=== PATIENT | female | born 1975 | race Caucasian/White ===

== ENCOUNTER → 2019-09-28 12:28 | Outpatient (BNVA) | payer BC, SELFPAY | PROVIDERS: Family Provider Registered Nurse; PCP Registered Nurse; Referring Provider Dermatology; Visit Provider Internal Medicine Rheumatology | DX: M19.90 Unspecified osteoarthritis, unspecified site (principal); Z79.899 Other long term (current) drug therapy; Z11.59 Encounter for screening for other viral diseases; Z11.1 Encounter for screening for respiratory tuberculosis; M25.541 Pain in joints of right hand; M25.542 Pain in joints of left hand; M77.9 Enthesopathy, unspecified; M77.02 Medial epicondylitis, left elbow; M77.12 Lateral epicondylitis, left elbow; M75.42 Impingement syndrome of left shoulder; M75.41 Impingement syndrome of right shoulder; M18.12 Unilateral primary osteoarthritis of first carpometacarpal joint, left hand | CPT/HCPCS: 36415; 82306; 82565; 85025; 85651; 86140; 86431; 86480; 86704; 86705; 86706; 86709; 86803; 86812; 87340; 99204 ==

== ENCOUNTER 2019-10-13 08:27 | Outpatient (CLI) | payer BC, SELFPAY ==
--- NOTE | 2019-10-13 08:42 | XR_ITS ---
WS: [id number] FOOT LEFT TECHNIQUE: 3 views of the left foot CLINICAL INFORMATION: inflammatory arthritis COMPARISON: None. FINDINGS: No evidence of acute fracture or dislocation. Normal tarsal metatarsal alignment. Normal calcaneus. N ormal visualized talar dome. No acute findings. XR/XR foot LT min 3V* [id number] IMPRESSION: Normal left foot.
--- NOTE | 2019-10-13 08:42 | XR_ITS ---
WS: [id number] HAND LEFT TECHNIQUE: 3 views of the left hand CLINICAL INFORMATION: inflammatory arthritis COMPARISON: None. FINDINGS: Normal metacarpals. Normal MCP joint. Metacarpal heads are normal in appearance. Normal PIP and DIP j oints. No evidence of acute fracture or dislocation. Radiocarpal joint: Normal. Carpal bones: Normal. XR/XR hand LT min 3V* [id number] IMPRESSION: Normal left hand.
--- NOTE | 2019-10-13 08:42 | XR_ITS ---
WS: [id number] HAND RIGHT TECHNIQUE: 3 views of the right hand CLINICAL INFORMATION: inflammatory arthritis COMPARISON: None. FINDINGS: Normal metacarpals. Normal MCP joint. Metacarpal heads are normal in appearance. Normal PIP and DIP j oints. No evidence of acute fracture or dislocation. Radiocarpal joint: Normal. Carpal bones: Normal. XR/XR hand RT min 3V* [id number] IMPRESSION: Normal right hand.
--- NOTE | 2019-10-13 08:42 | XR_ITS ---
WS: [id number] FOOT RIGHT TECHNIQUE: 3 views of the right foot CLINICAL INFORMATION: inflammatory arthritis COMPARISON: None. FINDINGS: No evidence of acute fracture or dislocation. Normal tarsal metatarsal alignment. Normal calcaneus. N ormal visualized talar dome. No acute findings. XR/XR foot RT min 3V* [id number] IMPRESSION: Normal right foot.
--- NOTE | 2019-10-13 08:42 | XR_ITS ---
WS: [id number] SHOULDER LEFT TECHNIQUE: 3 views of the left shoulder CLINICAL INFORMATION: inflammatory arthritis COMPARISON: None. FINDINGS: Normal acromioclavicular joint. Normal glenohumeral joint. Acromion is normal in appearance. Normal g lenoid. No evidence of acute fracture dislocation. XR/XR shoulder LT min 2V* [id number] IMPRESSION: Normal left shoulder.
== END 2019-10-13 08:28 | disposition home or self-care (01) ==
LOC: RADWPI 08:34
PROVIDERS: Family Provider Nurse Practitioner Family; PCP Registered Nurse; Visit Provider Internal Medicine Rheumatology
DX: M19.90 Unspecified osteoarthritis, unspecified site (principal)
CPT/HCPCS: 73030; 73130; 73630

== ENCOUNTER → 2019-10-16 14:57 | Outpatient (BNVA) | payer BC, SELFPAY | PROVIDERS: Family Provider Nurse Practitioner Family; PCP Registered Nurse; Visit Provider Internal Medicine Rheumatology | DX: M06.4 Inflammatory polyarthropathy (principal); Z15.89 Genetic susceptibility to other disease; M19.90 Unspecified osteoarthritis, unspecified site; M77.9 Enthesopathy, unspecified; R76.8 Other specified abnormal immunological findings in serum; M75.41 Impingement syndrome of right shoulder; M18.12 Unilateral primary osteoarthritis of first carpometacarpal joint, left hand; M77.12 Lateral epicondylitis, left elbow; M77.02 Medial epicondylitis, left elbow; M75.42 Impingement syndrome of left shoulder | CPT/HCPCS: 36415; 82085; 82550; 84439; 84443; 85651; 86140; 99214 ==

== ENCOUNTER → 2019-11-23 13:39 | Outpatient (BNVA) | payer BC, SELFPAY | PROVIDERS: Family Provider Nurse Practitioner Family; PCP Registered Nurse; Visit Provider Nurse Practitioner Family | DX: J06.9 Acute upper respiratory infection, unspecified (principal) | CPT/HCPCS: 87804 ==

== ENCOUNTER → 2022-01-20 11:00 | Outpatient (BNVA) | payer SELFPAY | PROVIDERS: Family Provider Nurse Practitioner Family; PCP Registered Nurse; Visit Provider Registered Nurse | DX: I10 Essential (primary) hypertension (principal); E53.8 Deficiency of other specified B group vitamins; E55.9 Vitamin D deficiency, unspecified; E78.5 Hyperlipidemia, unspecified; Z12.11 Encounter for screening for malignant neoplasm of colon | CPT/HCPCS: 80053; 80061; 82306; 82607; 85025 ==

== ENCOUNTER 2022-08-12 13:09 | Outpatient (CLI) | payer BC, SELFPAY ==
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
== END 2022-08-12 13:10 | disposition home or self-care (01) ==
LOC: RAD 13:12
PROVIDERS: PCP Registered Nurse; Visit Provider Registered Nurse
DX: S02.2XXA Fracture of nasal bones, initial encounter for closed fracture (principal); X58.XXXA Exposure to other specified factors, initial encounter
CPT/HCPCS: 70160

== ENCOUNTER 2022-08-26 15:14 | Outpatient (CLI) | payer BC, SELFPAY ==
--- NOTE | 2022-08-26 15:45 | XR_ITS ---
WS: [id number] EXAMINATION: XR nasal bones min 3V [id number] REASON FOR EXAM: FRACTURE OF NASAL BONES COMPARISON: 08/12/2022 ORDER DATE: 08/26/2022 3:46 PM FINDINGS: Sinuses: Well aerated. No opacification. Bones/joints: Comminuted displaced fracture of the distal aspect of the nasal bone somewhat less displaced than previous. Soft tissues: Soft tissue edema is seen in the nose overlying fracture. XR/XR nasal bones min 3V [id number] IMPRESSION: 1. Comminuted nondepressed nasal bone fracture as noted 2. Soft tissue edema in the nose.
== END 2022-08-26 15:15 | disposition home or self-care (01) ==
LOC: RAD 15:16
PROVIDERS: PCP Registered Nurse; Visit Provider Otolaryngology
DX: S02.2XXA Fracture of nasal bones, initial encounter for closed fracture (principal); X58.XXXA Exposure to other specified factors, initial encounter
CPT/HCPCS: 70160

== ENCOUNTER → 2023-05-27 09:57 | Outpatient (BNVA) | payer BC, SELFPAY | PROVIDERS: PCP Registered Nurse; Visit Provider Nurse Practitioner Family | DX: M79.672 Pain in left foot (principal) | CPT/HCPCS: 73630 ==

== ENCOUNTER 2023-06-25 12:47 | Outpatient (CLI) | payer BC, SELFPAY ==
--- NOTE | 2023-06-25 13:00 | CT_ITS ---
WS: [id number] CT LEFT FOOT, NONCONTRAST HISTORY: M79.672 - Pain in left foot, injury top of foot 1 month ago. Technique: All CT scans at [facility] use at least one of these dose optimization techniques: automated exposure control; mA and/or kV adjustment per patient size (includes targeted exams where dose is matched to clinical indication); or iterative reconstruction. DLP: 139.67 mGy.cm COMPARISON: Radiographs 05/27/2023 No acute fractures identified. No callus formation or healing fractures. No soft tissue abnormality. Normal alignment at the tarsometatarsal articulation. No widening of the Lisfranc ligament. No soft t issue abnormalities. There is a well-circumscribed osseous density medial to the distal talus. This i s not associated with the area of pain. This could be a small osseous fragment from a prior injury bu t no donor site is identified. Several hammertoe deformities. IMPRESSION: No acute or healing LEFT foot fracture. There is a small well-circumscribed osseous densities in the soft tissue of the medial foot. No donor site is identified. May be from a remote injury.
== END 2023-06-25 12:48 | disposition home or self-care (01) ==
LOC: RAD 12:50
PROVIDERS: PCP Registered Nurse; Visit Provider Registered Nurse
DX: M79.672 Pain in left foot (principal); M20.42 Other hammer toe(s) (acquired), left foot; R93.6 Abnormal findings on diagnostic imaging of limbs; S99.922D Unspecified injury of left foot, subsequent encounter; X58.XXXD Exposure to other specified factors, subsequent encounter
CPT/HCPCS: 73700

== ENCOUNTER 2023-08-10 16:37 | Outpatient (CLI) | payer BC, SELFPAY ==
--- NOTE | 2023-08-10 16:45 | MR_ITS ---
WS: [id number] EXAMINATION: MR foot LT wo con* [id number] ORDER DATE: 08/10/2023 4:38 PM COMPARISON: None. HISTORY: Left foot pain CONTRAST: None. TECHNIQUE: Sagittal T1, sagittal STIR, coronal PD, coronal T2, axial T1, axial T2, and axial PD imagi ng with fat saturation technique. FINDINGS: Metatarsals are normal in appearance. Chronic erosions involving the metatarsals heads. Deg enerative narrowing involving the first MTP. Soft tissue edema involving the dorsal foot worse involv ing the lateral foot. Fifth metatarsal is normal in appearance. Normal cuboid. No acute fractures. No rmal navicular. Normal cuneiforms. Mild degenerative arthritis at the MTP and IP joints IMPRESSION: Dorsal foot soft tissue edema. No acute fractures.
== END 2023-08-10 16:38 | disposition home or self-care (01) ==
PROVIDERS: PCP Registered Nurse; Visit Provider Podiatrist Foot & Ankle Surgery
DX: M79.672 Pain in left foot (principal); R60.0 Localized edema
CPT/HCPCS: 73718

== ENCOUNTER → 2023-12-02 10:07 | Outpatient (BNVA) | payer BC, SELFPAY | PROVIDERS: PCP Registered Nurse; Visit Provider Registered Nurse | DX: I10 Essential (primary) hypertension (principal); G47.33 Obstructive sleep apnea (adult) (pediatric); Z00.00 Encounter for general adult medical examination without abnormal findings | CPT/HCPCS: 80053; 80061; 84443; 85025 ==

== ENCOUNTER 2024-08-14 20:00 | Outpatient (CLI) | payer BC, SELFPAY | END 2024-08-14 20:01 | disposition home or self-care (01) | LOC: SLEEP 22:35 | PROVIDERS: PCP Registered Nurse; Visit Provider Registered Nurse | DX: G47.33 Obstructive sleep apnea (adult) (pediatric) (principal); I10 Essential (primary) hypertension | CPT/HCPCS: 95810 ==

== ENCOUNTER 2024-10-23 11:10 | Emergency (ER) | payer BC, SELFPAY ==
[2024-10-23 11:13] VITALS: BP 205/108; PULSE 80; RESP 16; TEMP 36.6; O2SAT 99; BMI 27.2
[2024-10-23 11:36] VITALS: BP 198/105; PULSE 82; RESP 16; O2SAT 99
--- NOTE | 2024-10-23 11:36 | ECG_ITS ---
[facility] Date: 2024-10[facility]23 Pat Name: Radha Fernandez Department: Room: Gender: Female Credit Report Checker: : 1975 Requested By: Cindy Danielle Order Number: [id number] Sanaz MD: Gagandeep Ha M.D. Measurements Intervals [place] Rate: 74 P: 55 NH: 166 QRS: 19 QRSD: 169 T: 8 QT: 437 QTc: 487 Interpretive Statements SINUS RHYTHM POSSIBLE LEFT ATRIAL ENLARGEMENT [-0.1mV P-WAVE IN V1/V2] INTRAVENTRICULAR CONDUCTION DELAY [130+ ms QRS DURATION] Compared to ECG 04/28/2019 12:58:30 Intraventricular conduction delay now present Sinus bradycardia no longer present Right bundle-branch block no longer present Electronically Signed On 10-26-2024 22:08:23 SEED LABORATORY ASSISTANT by Gagandeep Ha M.D. [id number] [id number]
--- NOTE | 2024-10-23 11:36 | XRR_ITS ---
PROCEDURE INFORMATION: Exam: XR Chest Exam date and time: 10/23/2024 11:38 AM Age: 49 years old Clinical indication: Pain; Angina pectoris; Dizziness, high BP; Additional info: Cp TECHNIQUE: Imaging protocol: Radiologic exam of the chest. Views: 1 view. COMPARISON: CR XR shoulder LT min 2V* [id number] 10/13/2019 8:48 AM FINDINGS: Lungs: Unremarkable. No consolidation. Pleural spaces: Unremarkable. No pleural effusion. No pneumothorax. Heart/Mediastinum: Unremarkable. No cardiomegaly. Bones/joints: No acute bony abnormalities detected. XR/XR chest 1V portable [id number] IMPRESSION: Negative chest exam.
[2024-10-23] MEDS: hyDRALAzine 20 mg/mL INJ 1 mL 10 MG IVP (11:43)
[2024-10-23 11:45] LABS: Basophils % 0.2 %; Eosinophils # 0.1 10^3/uL (0.0-0.8); Eosinophils % 1.2 %; Hematocrit 39.3 % (36-47); Lymphocytes # 2.5 10^3/uL (0.8-4.8); Lymphocytes % 42.5 %; Mean Corpuscular HGB Conc 33.8 g/dL (30-55); Mean Corpuscular Hemoglobin 29.6 pg (27-33); Mean Corpuscular Volume 87.3 fl (85-98); Mean Platelet Volume 9.5 fL (7.4-10.4); Monocytes # 0.4 10^3/uL (0.2-0.9); Monocytes % 6.1 %; Neutrophils # 2.93 10^3/uL (1.8-7.7); Neutrophils % 49.8 %; Nucleated Red Blood Cells % 0 %; Platelet Count 227 10^3/cmm (157-399); Red Cell Distribution Width 12.4 % (12.1-15.1); White Blood Count 5.88 10^3/uL (3.29-11.43)
--- NOTE | 2024-10-23 11:53 | ED_ITS ---
HPI - Dizziness 2 General: Chief Complaint: Dizziness Stated Complaint: high b/p Time Seen by Provider: 10/23/24 11:26 Source: patient Mode of arrival: ambulatory Limitations: no limitations History of Present Illness: HPI Narrative: 49-year-old female with a history of hyp ertension she states that she has been under a lot of stress lately in the day that her blood pressure been running high in the upper 100s systolic she states she has been having some lightheadedness also having some shoulder pain. She denies any chest pain she denies any syncopal events denies any severe headache. She does take lisinopril and carvedilol for her blood pressure Associated symptoms: Denies chest pain, chills, headache(s), nausea or vomiting Related Data Home Medications Medication Instructions Recorded Confirmed hydroxychloroquine 200 mg tablet 200 mg PO DAILY 08/05/22 10/23/24 carvedilol 25 mg tablet 25 mg PO BID 10/23/24 10/23/24 hydrochlorothiazide 25 mg tablet 25 mg PO DAILY 10/23/24 10/23/24 lisinopril 40 mg tablet 40 mg PO DAILY 10/23/24 10/23/24 Previous Rx's Medication Instructions Recorded custom orthotics L3020 #1 ea 08/19/23 epinephrine 0.3 mg/0.3 mL See Rx Instructions .Route 12/14/23 injection, auto-injector .COMPLEX #2 ea albuterol sulfate 90 mcg/actuation 1 inh inhalation QID #1 ea 06/02/24 breath activated powder inhaler,sensor (Proair Digihaler) Allergies Allergy/AdvReac Type Severity Reaction Status Date / Time Opioids - Morphine Analogues Allergy Intermediate hives Verified 10/23/24 11:18 Review of Systems 2 Const: Denies: fever(s), chills, body aches or change in appetite Eyes: Denies: blurry vision ENMT: Denies: throat pain or dental pain Card: Denies: chest pain Resp: Denies: dyspnea GI: Denies: abdominal pain, nausea, vomiting or diarrhea Musc: Reports: neck pain; Denies: back pain Skin/Breast: Denies: rash Neuro: Reports: dizziness; Denies: headache(s) PFS ED 2 PFSH: Medical History Hx of anaphylaxis Essential hypertension Rheumatoid factor positive HLA B27 (HLA B27 positive) Inflammatory arthritis Rotator cuff impingement syndrome of right shoulder Rotator cuff impingement syndrome of left shoulder Arthralgia of both hands Rotator cuff arthropathy of right shoulder History of IBS Family History Mother Cancer Bladder Diabetes CAD (coronary artery disease) Lung disease Father Cancer Lung Lung disease Grandfather Heart attack CAD (coronary artery disease) from [place] Grandmother CAD (coronary artery disease) Hypertension Denies family history of Clotting disorder Dementia Chronic kidney disease (CKD) Suicide Anesthesia complication Bleeding disorder Stroke Social History Smoking and tobacco/nicotine status: never used tobacco/nicotine Alcohol intake: current Alcohol intake frequency: holidays/special occasions only Substance/Drug Use: never Physical Exam 2 Const: COMMON NORMALS: no acute distress, patient oriented x3 and healthy appearing HENMT: COMMON NORMALS: normocephalic and atraumatic HEAD & SCALP: n ormocephalic and atraumatic Eye: COMMON NORMALS: Equal, round and reactive pupils present and EOMs intact bilaterally PUPIL: Yes Equal, round and reactive pupils present Neck/C-Spine: COMMON NORMALS: full ROM and supple Chest: COMMONS NORMALS: normal inspection of the chest Resp: COMMON NORMALS: normal respiratory effort, No retractions, No use of accessory muscles and clear to auscultation bilaterally AUSCULTATION: clear to auscultation bilaterally Cardio: COMMON NORMALS: regular rate, regular rhythm and No murmurs present (Cardio) RATE: regular rate RHYTHM: regular rhythm Extremity: COMMON NORMALS: normal to inspection and full ROM Neuro: COMMON NORMALS: patient oriented x3, moves all extremities and no focal motor deficits Psych: COMMON NORMALS: mental status grossly normal, Normal thought process present and cooperative THOUGHT PROCESS: Normal thought process present Skin: COMMON NORMALS: no rashes or lesions noted and no wounds GENERAL SKIN EXAM: no rashes or lesions noted Course 2 Vital Signs: Vital signs: Vital Signs Temperature 97.9 F 10/23/24 11:13 Pulse Rate 77 10/23/24 12:26 Respiratory Rate 16 10/23/24 12:26 Blood Pressure 137/89 10/23/24 12:26 Pulse Oximetry 99 02/03/25 12:26 Oxygen Delivery Me thod Room Air 10/23/24 11:13 MDM - Dizziness Medical Decision Making Patient presents here with hypertension and some shoulder pain dizziness her blood work here are normal troponins negative no signs of acute coronary syndrome no signs of stroke she has no vertigo she feels much improved her blood pressure is down here informed her she could double her carvedilol her blood pressure continues to be elevated she is to monitor her blood pressure morning noon and night to follow-up with her PCP she understands agrees to plan. Medical Records I reviewed the patient's medical records. Lab Data I reviewed the patient's lab results. 10/23/24 11:33 10/23/24 11:33 Laboratory Results WBC 5.88 10^3/uL (3.29-11.43) 10/23/24 11:33 RBC 4.50 10^6/uL (3.85-5.65) 10/23/24 11:33 Hgb 13.30 g/dL (11.27-16.99) 10/23/24 11:33 Hct 39.3 % (36-47) 10/23/24 11:33 MCV 87.3 fl (85-98) 10/23/24 11:33 MCH 29.6 pg (27-33) 10/23/24 11:33 MCHC 33.8 g/dL (30-55) 10/23/24 11:33 RDW 12.4 % (12.1-15.1) 10/23/24 11:33 Plt Count 227 10^3/cmm (157-399) 10/23/24 11:33 MPV 9.5 fL (7.4-10.4) 10/23/24 11:33 Neut % (Auto) 49.8 % 10/23/24 11:33 Lymph % (Auto) 42.5 % 10/23/24 11:33 [place] % (Auto) 6.1 % 10/23/24 11:33 Eos % (Auto) 1.2 % 10/23/24 11:33 Baso % (Auto) 0.2 % 10/23/24 11:33 Neut # (Auto) 2.93 10^3/uL (1.8-7.7) 10/23/24 11:33 Lymph # (Auto) 2.5 10^3/uL (0.8-4.8) 10/23/24 11:33 [place] # (Auto) 0.4 10^3/uL (0.2-0.9) 10/23/24 11:33 Eos # (Auto) 0.1 10^3/uL (0.0-0.8) 10/23/24 11:33 Baso # (Auto) 0.0 10^3/uL (0.0-0.1) 10/23/24 11:33 Nucleated RBC % (auto) 0 % 10/23/24 11:33 Nucleated RBCs # 0.0 /100WBC 10/23/24 11:33 Sodium 141 mmol/L (136-145) 10/23/24 11:33 Potassium 3.6 mmol/L (3.5-5.1) 10/23/24 11:33 Chloride 101 mmol/L (98-107) 10/23/24 11:33 Carbon Dioxide 27 mmol/L (22-29) 10/23/24 11:33 Anion Gap 16.6 (5-19) 10/23/24 11:33 BUN 20 mg/dL (6-20) 10/23/24 11:33 Creatinine 0.9 mg/dL (0.5-0.9) 10/23/24 11:33 GFR Calculation 66.0 mL/min (90-130) L 10/23/24 11:33 Glucose 135 mg/dL (65-115) H 10/23/24 11:33 Calculated Osmolality 297 mOsm/kg (285-295) H 10/23/24 11:33 Calcium 10.7 mg/dL (8.5-10.5) H 10/23/24 11:33 Total Bilirubin 0.5 mg/dL (0.15-1.2) 10/23/24 11:33 AST 31 U/L (0-32) 10/23/24 11:33 ALT 50 U/L (0-33) H 10/23/24 11:33 Alkaline Phosphatase 93 U/L (35-105) 10/23/24 11:33 Troponin T Baseline < 6 ng/L (0-10) 10/23/24 11:33 Total Protein 7.1 g/dL (6.6-8.7) 10/23/24 11:33 Albumin 4.5 g/dL (3.5-5.2) 10/23/24 11:33 Globulin 2.6 g/dL (1.3-4.6) 10/23/24 11:33 All radiology interpretation(s) finalized by discharge Discharge Plan Discharge Patient Disposition: Home Clinical Impression: Hypertension Condition: Stable Prescriptions: No Action hydroxychloroquine 200 mg tablet 200 mg PO DAILY (DME) custom orthotics L3020 See Rx Instructions .Route .MEDSUPPLY Qty: 1 0RF Rx Instructions: As directed to the [employer]ly [employer] epinephrine 0.3 mg/0.3 mL auto-injector See Rx Instructions .ROUTE .COMPLEX Qty: 2 0RF Dose Instruction: INJECT 0.3 MG IM EVERY 10 MIN NEEDED FOR ANAPHYLAXIS FOR 2 DOSES Rx Instructions: INJECT 0.3 MG IM EVERY 10 MIN NEEDED FOR ANAPHYLAXIS FOR 2 DOSES Proair Digihaler 90 mcg/actuation aero powdr breath act w/sensor 1 inh inhalation QID Qty: 1 0RF carvedilol 25 mg tablet 25 mg PO BID Rx Instructions: TAKE 1 TABLET BY MOUTH TWICE A DAY hydrochlorothiazide 25 mg tablet 25 mg PO DAILY Rx Instructions: TAKE 1 TABLET BY MOUTH EVERY DAY lisinopril 40 mg tablet 40 mg PO DAILY Rx Instructions: TAKE 1 TABLET BY MOUTH EVERY DAY Discharge Orders: Discharge ED (Routine); Ordered 10/23/24 Ordered By: Cindy Danielle Referrals: Diana Henry, [facility] [Primary Care Provider] - 1-3 days Discharge Diet: Advance as tolerated Discharge Activity: Resume usual activity Patient Instructions: Hypertension (ED) Activity Restrictions/Additional Instructions: double dose of carvedilol if continue htn Stand Alone Forms: Work/School Release Coding Level of Care Code ED Manager [employer] for Naren Henriquez
[2024-10-23 12:00] VITALS: BP 151/101; PULSE 81; RESP 16; O2SAT 99
[2024-10-23 12:02] LABS: Alanine Aminotransferase 50 U/L (0-33); Albumin Level 4.5 g/dL (3.5-5.2); Alkaline Phosphatase 93 U/L (35-105); Anion Gap 16.6 (5-19); Aspartate Amino Transferase 31 U/L (0-32); Blood Urea Nitrogen 20 mg/dL (6-20); Calcium 10.7 mg/dL (8.5-10.5); Carbon Dioxide 27 mmol/L (22-29); Chloride 101 mmol/L (98-107); Globulin 2.6 g/dL (1.3-4.6); Glucose 135 mg/dL (65-115); Osmolality Calculated 297 mOsm/kg (285-295); Potassium 3.6 mmol/L (3.5-5.1); Sodium 141 mmol/L (136-145); Total Bilirubin 0.5 mg/dL (0.15-1.2); Total Protein 7.1 g/dL (6.6-8.7); Troponin(5th) Baseline < 6 ng/L (0-10)
[2024-10-23 12:26] VITALS: BP 137/89; PULSE 77; RESP 16; O2SAT 99
== END 2024-10-23 12:35 | disposition home or self-care (01) ==
PROVIDERS: Emergency Provider Emergency Medicine; PCP Registered Nurse
DX: I10 Essential (primary) hypertension (principal)
CPT/HCPCS: 36415; 71045; 80053; 84484; 85025; 93005; 96374; 99285; J0360

== ENCOUNTER → 2024-11-14 14:42 | Outpatient (BNVA) | payer BC, SELFPAY | PROVIDERS: PCP Registered Nurse; Visit Provider Internal Medicine Cardiovascular Disease | DX: I10 Essential (primary) hypertension (principal); R53.83 Other fatigue | CPT/HCPCS: 36415; 80048; 82533; 84443 ==

== ENCOUNTER → 2024-12-20 07:43 | Outpatient (BNVA) | payer BC, SELFPAY | PROVIDERS: PCP Registered Nurse; Visit Provider Registered Nurse | DX: N39.0 Urinary tract infection, site not specified (principal) | CPT/HCPCS: 87086 ==

== ENCOUNTER 2024-12-22 08:00 | Outpatient (CLI) | payer BC, SELFPAY ==
--- NOTE | 2024-12-22 08:15 | USCV_ITS ---
Jim Radha Age: 49 Gender: F : 1975 Exam Date: 12/22/2024 08:16 Ordering Phys: Faith Grayson MD ([email or web address]) Technologist: R Exam Location: [facility] [place]ication: HTN Aortic Velocity @ SMA (cm/s) 71.5 RIGHT KIDNEY LEFT KIDNEY Velocity (cm/s) Velocity (cm/s) Sys/Gardner Sys/Gardner Resistive Index Resistive Index 56.5 / 20.6 0.64 Proximal Renal Artery 69.0 / 26.0 0.62 116.9 / 26.6 0.77 Mid Renal Artery 113.0 / 43.1 0.62 73.0 / 28.9 0.60 Distal Renal Artery 127.4 / 43.1 0.66 48.0 / 15.6 0.67 Hilar 55.0 / 22.4 0.60 17.8 / 7.5 0.58 Upper Pole 32.3 / 11.8 0.64 22.6 / 8.5 0.63 Mid Pole 37.9 / 12.7 0.67 19.5 / 8.5 0.57 Lower Pole 32.8 / 12.4 0.62 1.62 Renal Aortic Ratio 1.78 Accleration Time (sec) 0.12 Hilar 0.19 0.10 Upper Pole 0.05 0.20 Mid Pole 0.68 0.17 Lower Pole 0.17 10.1 Kidney Length (cm) 11.2 FINDINGS No comparison. Normal size kidneys. No evidence of abdominal aortic aneurysm. Slighly elevated left renal hilar velocity but ratio is normal. There is no evidence of hemodynamically significant right renal artery stenosis. There is no evidence of hemodynamically significant left renal artery stenosis. CONCLUSIONS No sonographic evidence of renal aortic stenosis or aneurysm. Dr. Yakelin Ayala DO (Electronically Signed) Final Date: 22 December 2024 11:09 S
--- NOTE | 2024-12-22 09:15 | USCV_ITS ---
Radha Fernandez Age: 49 Gender: F : 1975 Exam Date: 12/22/2024 08:36 Ordering Phys: Faith Grayson MD ([email or web address]) Technologist: CALEB Exam Location: [facility] – [place] Indication: HTN BP: 130 / 90 HR: 65 Rhythm: Sinus Technical Quality: Adequate MEASUREMENTS (Male / Female) Normal Values 2D ECHO LV Diastolic Diameter PLAX 5.1 cm 4.2 - 5.9 / 3.9 - 5.3 cm IVS Diastolic Thickness 1.0 cm 0.6 - 1.0 / 0.6 - 0.9 cm IVS Systolic Thickness 1.9 cm LVPW Diastolic Thickness 1.1 cm 0.6 - 1.0 / 0.6 - 0.9 cm LVPW Systolic Thickness 1.5 cm LVOT Diameter 2.0 cm LV Ejection Fraction 2D Teich 56.9 % LV Ejection Fraction MOD 4C 55.6 % LV Ejection Fraction MOD 2C 55.6 % LV Ejection Fraction 2C AL 58.3 % LA Diameter 3.7 cm RA Systolic Volume 4C AL 32.7 ml RA Systolic Volume 4C MOD 32.9 ml LA Sys Volume AL 34.5 cm cubed LA Sys Volume Index AL 15.8 cm cubed/m squared Aorta at Sinotubular Diameter 2.8 cm M-MODE LA Ao Ratio MM 1.6 AV Cusp Separation MM 1.5 cm DOPPLER AV Peak Velocity 113.0 cm/s LVOT Peak Velocity 88.0 cm/s AV Area Cont Eq vti 2.6 cm squared AV Area Cont Eq pk 2.3 cm squared MV Peak Velocity 84.0 cm/s MV Area PHT 4.1 cm squared Mitral E to A Ratio 0.9 TR Peak Velocity 82.0 cm/s TR Peak Gradient 2.7 mmHg TV Peak E Velocity 72.0 cm/s PV Peak Velocity 91.0 cm/s FINDINGS Left Ventricle Normal left ventricular size, systolic function and wall thickness, with no regional wall motion abnormalities. Left ventricular ejection fraction is estimated at 60 %. Grade I/IV diastolic dysfunction (abnormal relaxation filling pattern), normal to mildly elevated filling pressures. Right Ventricle The right ventricle is normal in size and function. Right Atrium The right atrium is normal in size. Left Atrium The left atrium is normal in size. Mitral Valve Trace mitral valve regurgitation. Aortic Valve Moderate aortic valve calcification. No aortic valve stenosis. Trace aortic valve regurgitation. Tricuspid Valve Structurally normal tricuspid valve without significant stenosis or regurgitation. Pulmonary artery systolic pressure is normal. Pulmonic Valve Structurally normal pulmonic valve without significant stenosis. There is no pulmonic regurgitation. Pericardium Normal pericardium without effusion. Aorta Normal ascending aorta dimension. IVC The inferior vena cava appears normal. CONCLUSIONS Normal left ventricular size, systolic function and wall thickness, with no regional wall motion abnormalities. Left ventricular ejection fraction is estimated at 60 %. Grade I/IV diastolic dysfunction (abnormal relaxation filling pattern), normal to mildly elevated filling pressures. No significant valve abnormalities. There is no pericardial effusion. Right atrial pressure is around 5 mm of mercury. Faith Grayson MD (Electronically Signed) Final Date: 29 December 2024 20:57 S
== END 2024-12-22 08:01 | disposition home or self-care (01) ==
PROVIDERS: PCP Registered Nurse; Visit Provider Internal Medicine Cardiovascular Disease
DX: I10 Essential (primary) hypertension (principal); R07.9 Chest pain, unspecified; R06.02 Shortness of breath
CPT/HCPCS: 93306; 93975